=== PATIENT | male | born 1970 | race Caucasian/White ===

== ENCOUNTER 2017-01-23 11:17 | Emergency (ER) | payer OTHER ==
[~2017-01-23] VITALS: Ht 172.7 cm; Wt 79.4 kg
[~2017-01-23 11:17] MED LIST: ACULAR 3ML 3 ML5 ML OPH; DARVOCET N 1001 TAB PO; MIRTAZAPINE45 MG PO; MOBIC15 MG PO; MOTRIN800 MG PO; NAPROSYN500 MG PO; NEURONTIN300 MG PO; NORFLEX100 MG PO; PREDNISONE20 MG PO; ROPINIROLE HYDRO1 MG PO; TOBREX OPHTH S2.5 ML OPH; VISTARIL25 M2 PO
[2017-01-23 12:08] LABS: BASO # 0.1 10*3/uL (0.0-0.1); EOS # 0.1 10*3/uL (0.0-0.4); EOS % 1.5 % (1.0-4.0); HEMATOCRIT 45.3 % (42.0-52.0); HEMOGLOBIN 15.5 g/dl (14.0-18.0); LYMPH # 1.8 10*3/uL (1.3-4.4); MEAN CELL VOLUME 90.1 fl (80.0-94.0); MEAN CORPUSCULAR HGB 30.8 pg (27.0-31.0); MEAN CORPUSCULAR HGB CONC 34.2 g/dl (33.0-37.0); MEAN PLATELET VOLUME 11.1 fl (9.6-12.3); MONO # 0.6 10*3/uL (0.1-1.0); MONO % 9.9 % (3.0-9.0); NEUT # 3.5 10*3/uL (2.3-7.9); NEUT % 58.3 % (47.0-73.0); PLATELET COUNT AUTOMATED 159 10*3/uL (130-400); RED BLOOD COUNT 5.03 10*6/uL (4.50-5.90); WHITE BLOOD COUNT 6.1 10*3/uL (4.8-10.8)
[2017-01-23 12:21] LABS: BUN 11 mg/dl (7-24); CARBON DIOXIDE 28 mmol/L (21-32); CHLORIDE 106 mmol/L (98-107); EST GLOM FILT AFRICAN AMERICAN > 60 ml/min; GLUCOSE 103 mg/dL (65-99); POTASSIUM 4.4 mmol/L (3.5-5.1); SODIUM 140 mmol/L (136-145)
[2017-01-23 13:06] LABS: URINE AMPHETAMINES < 1000 (1000ng/ml); URINE BARBITURATES < 200 (200ng/ml); URINE COCAINE < 300 (300ng/ml)
[2017-01-23 13:10] LABS: BILIRUBIN NEGATIVE (NEGATIVE); BLOOD 1+ (NEGATIVE); CLARITY CLEAR (CLEAR); COLOR YELLOW (YELLOW); GLUCOSE NEGATIVE (NEGATIVE); KETONE NEGATIVE (NEGATIVE); LEUKO ESTERASE NEGATIVE (NEGATIVE); NITRITE NEGATIVE (NEGATIVE); PH 6.5 (5.0-9.0); PROTEIN NEGATIVE (NEGATIVE); SPECIFIC GRAVITY 1.015 (1.005-1.030)
[2017-01-23 13:21] LABS: MUCOUS 1+; RBC 0-2 rbc/hpf (0-2); URINE REFLEX COMMENT YES (NO)
== END 2017-01-23 18:34 | disposition home health service (06) ==
LOC: ED 11:17
PROVIDERS: Emergency Medicine
DX: F32.9 Major depressive disorder, single episode, unspecified (principal); R45.851 Suicidal ideations; F17.200 Nicotine dependence, unspecified, uncomplicated; Z88.8 Allergy status to other drugs, medicaments and biological substances

== ENCOUNTER 2017-03-01 14:48 | Emergency (ER) | payer OTHER ==
[~2017-03-01] VITALS: Wt 81.6 kg
[2017-03-01] MEDS ORDERED: REMERON30 M1 PO (15:06)
[2017-03-01] MEDS ORDERED: ZYPREXA10 M2 PO (15:10)
[2017-03-01] MEDS ORDERED: Depakote500 MG PO (15:12)
[2017-03-01 15:14] LABS: BASO # 0.1 10*3/uL (0.0-0.1); BASO % 1.1 % (0.0-1.0); EOS # 0.7 10*3/uL (0.0-0.4); EOS % 9.6 % (1.0-4.0); HEMOGLOBIN 15.6 g/dl (14.0-18.0); LYMPH # 2.4 10*3/uL (1.3-4.4); LYMPH % 33.8 % (27.0-41.0); MEAN CELL VOLUME 91.6 fl (80.0-94.0); MEAN CORPUSCULAR HGB 31.1 pg (27.0-31.0); MEAN CORPUSCULAR HGB CONC 33.9 g/dl (33.0-37.0); MEAN PLATELET VOLUME 11.4 fl (9.6-12.3); MONO # 0.9 10*3/uL (0.1-1.0); MONO % 12.3 % (3.0-9.0); NEUT # 3.1 10*3/uL (2.3-7.9); NEUT % 42.9 % (47.0-73.0); PLATELET COUNT AUTOMATED 158 10*3/uL (130-400); RED BLOOD COUNT 5.02 10*6/uL (4.50-5.90); RED CELL DISTRI WIDTH 13.6 % (0-14.5); WHITE BLOOD COUNT 7.2 10*3/uL (4.8-10.8)
[2017-03-01 15:25] LABS: BILIRUBIN NEGATIVE (NEGATIVE); BLOOD TRACE-INTACT (NEGATIVE); CLARITY CLEAR (CLEAR); COLOR YELLOW (YELLOW); GLUCOSE NEGATIVE (NEGATIVE); KETONE NEGATIVE (NEGATIVE); LEUKO ESTERASE NEGATIVE (NEGATIVE); NITRITE NEGATIVE (NEGATIVE); PH 5.5 (5.0-9.0); UROBILINOGEN 0.2 E.U./dl (0.2-1.0)
[2017-03-01 15:28] LABS: ALKALINE PHOSPHATASE 78 U/L (45-117); BUN 17 mg/dl (7-24); CHLORIDE 104 mmol/L (98-107); POTASSIUM 4.1 mmol/L (3.5-5.1); SGOT/AST 23 IU/L (3-35); SGPT/ALT 47 U/L (12-78); SODIUM 141 mmol/L (136-145); TOTAL PROTEIN 7.6 gm/dL (6.4-8.2)
[2017-03-01 15:29] LABS: ETHYL ALCOHOL < 3.0 mg/dl (<3)
[2017-03-01 15:34] LABS: RBC 0-2 rbc/hpf (0-2); URINE AMPHETAMINES < 1000 (1000ng/ml); URINE BARBITURATES < 200 (200ng/ml); URINE BENZODIAZEPINES < 200 (200ng/ml); URINE CANNABINOIDS (THC) < 50 (50ng/ml); URINE COCAINE < 300 (300ng/ml); URINE METHADONE < 300 (300ng/ml); URINE OPIATES < 300 (300ng/ml); WBC 0-2 wbc/hpf (0-5)
[2017-03-01 15:38] LABS: URINE PHENCYCLIDINE < 25 (25ng/ml)
[2017-03-01] MEDS ORDERED: PAROXETINE20 MG PO (21:15)
== END 2017-03-01 23:20 | disposition home health service (06) ==
LOC: ED 14:48
PROVIDERS: Emergency Medicine
DX: R45.851 Suicidal ideations (principal); F32.9 Major depressive disorder, single episode, unspecified; G25.81 Restless legs syndrome; F41.9 Anxiety disorder, unspecified; G56.01 Carpal tunnel syndrome, right upper limb; Z88.8 Allergy status to other drugs, medicaments and biological substances; Z88.6 Allergy status to analgesic agent

== ENCOUNTER → 2021-01-06 | Outpatient (CLI) | payer OTHER ==
[~2021-01-06] MED LIST changes: +Depakote500 MG PO; +PAROXETINE20 MG PO; +REMERON30 M1 PO; +ZYPREXA10 M2 PO
[2021-01-06 10:22] LABS: BASO % 0.5 % (0.0-1.0); EOS # 0.2 10*3/uL (0.0-0.4); EOS % 2.3 % (1.0-4.0); HEMATOCRIT 46.6 % (42.0-52.0); LYMPH # 3.3 10*3/uL (1.3-4.4); LYMPH % 43.3 % (27.0-41.0); MEAN CELL VOLUME 91.7 fl (80.0-94.0); MEAN CORPUSCULAR HGB 31.3 pg (27.0-31.0); MEAN CORPUSCULAR HGB CONC 34.1 g/dl (33.0-37.0); MEAN PLATELET VOLUME 10.9 fl (9.6-12.3); MONO # 0.8 10*3/uL (0.1-1.0); MONO % 10.8 % (3.0-9.0); NEUT # 3.2 10*3/uL (2.3-7.9); NEUT % 42.8 % (47.0-73.0); PLATELET COUNT AUTOMATED 215 10*3/uL (130-400); RED BLOOD COUNT 5.08 10*6/uL (4.50-5.90); RED CELL DISTRI WIDTH 13.2 % (0-14.5); WHITE BLOOD COUNT 7.5 10*3/uL (4.8-10.8)
[2021-01-06 10:57] LABS: ALBUMIN 4.1 gm/dl (3.1-4.5); BUN 21 mg/dl (7-24); CHLORIDE 107 mmol/L (98-107); CHOLESTEROL 226 mg/dL (<200); LDL CHOLESTEROL 144 mg/dL (9-159); POTASSIUM 3.7 mmol/L (3.5-5.1); SGOT/AST 18 IU/L (3-35); SGPT/ALT 34 U/L (12-78); SODIUM 137 mmol/L (136-145); TRIGLYCERIDES 266 mg/dl (<150)
[2021-01-06 10:58] LABS: ALKALINE PHOSPHATASE 74 U/L (45-117); TOTAL PROTEIN 7.4 gm/dL (6.4-8.2)
== END | disposition home or self-care (01) ==
LOC: LAB 09:55
PROVIDERS: ATTEND Nurse Practitioner Family
DX: F64.0 Transsexualism (principal); Z79.899 Other long term (current) drug therapy